=== PATIENT | male | born 1985 | race Caucasian/White ===

== ENCOUNTER 2016-11-27 10:50 | Emergency (ER) | payer SELFPAY ==
[~2016-11-27] VITALS: Ht 182.8 cm; Wt 102.1 kg
[~2016-11-27 10:50] MED LIST: CLARITIN10 MG PO; COZAAR100 MG PO; CYCLOBENZAPRINE5 M3 PO; FLEXERIL5 MG PO; GEMFIBROZIL600 MG PO; HYDROCODONE BIT1 T11 PO; KEFLEX500 M1 PO; LOSARTAN POTASS1 TA5 PO; MOTRIN800 MG PO; Motrin,Rufen800 MG PO; NKHM; NORCO 325 MG-101 TAB PO; OYSTER SHELL CA PO; PREDNISONE10 MG PO; PREDNISONE20 MG PO; PROAIR HFA0.09 MG/AC INH; Synthroid,Lev100 MCG PO; TRAMADOL HCL50 MG PO; VITAMIN D50000 IU PO
[2016-11-27] MEDS ORDERED: PREDNISONE10 MG PO (13:23)
[2016-11-27] MEDS ORDERED: CYCLOBENZAPRINE10 MG PO (13:23)
== END 2016-11-27 13:38 | disposition home or self-care (01) ==
LOC: ED 10:50
DX: S01.112A Laceration without foreign body of left eyelid and periocular area, initial encounter (principal); M54.5 Low back pain; R51 Headache; R42 Dizziness and giddiness; W10.9XXA Fall (on) (from) unspecified stairs and steps, initial encounter; Y93.9 Activity, unspecified; Y92.009 Unspecified place in unspecified non-institutional (private) residence as the place of occurrence of the external cause; Y99.9 Unspecified external cause status

== ENCOUNTER 2020-06-14 21:48 | Emergency (ER) | payer OTHER ==
[~2020-06-14] VITALS: Ht 182.8 cm; Wt 88.5 kg
[~2020-06-14 21:48] MED LIST changes: +CEFADROXIL500 M1 PO; +CYCLOBENZAPRINE10 MG PO; +SEPTDS PO
[2020-06-15] MEDS ORDERED: IBU800 MG PO (00:15)
[2020-06-15] MEDS ORDERED: CYCLOBENZAPRINE10 MG PO (00:15)
== END 2020-06-15 01:06 | disposition home or self-care (01) ==
LOC: ED 21:48
DX: S16.1XXA Strain of muscle, fascia and tendon at neck level, initial encounter (principal); V89.2XXA Person injured in unspecified motor-vehicle accident, traffic, initial encounter; Y93.89 Activity, other specified; Y92.89 Other specified places as the place of occurrence of the external cause; Y99.8 Other external cause status

== ENCOUNTER 2020-10-13 03:08 | Emergency (ER) | payer SELFPAY ==
[~2020-10-13] VITALS: Ht 182.8 cm; Wt 102.1 kg
[~2020-10-13 03:08] MED LIST changes: +IBU800 MG PO
[2020-10-13] MEDS ORDERED: AMOXICILLIN500 M2 PO ×2 (03:49)
== END 2020-10-13 04:20 | disposition home or self-care (01) ==
LOC: ED 03:08
DX: K04.7 Periapical abscess without sinus (principal); K08.89 Other specified disorders of teeth and supporting structures; Z79.899 Other long term (current) drug therapy

== ENCOUNTER 2020-10-23 13:35 | Inpatient (IN) | payer SELFPAY ==
[~2020-10-23] VITALS: Ht 180.3 cm; Wt 93.7 kg
[~2020-10-23 13:35] MED LIST changes: +AMOXICILLIN500 M2 PO
[2020-10-23 13:46] VITALS: BP 122/76
[2020-10-23 14:19] LABS: BASO # 0.1 10*3/uL (0.0-0.1); BASO % 0.4 % (0.0-1.0); EOS # 0.4 10*3/uL (0.0-0.4); EOS % 2.9 % (1.0-4.0); HEMATOCRIT 43.3 % (42.0-52.0); LYMPH # 1.8 10*3/uL (1.3-4.4); LYMPH % 15.1 % (27.0-41.0); MEAN CELL VOLUME 90.2 fl (80.0-94.0); MEAN CORPUSCULAR HGB 30.4 pg (27.0-31.0); MEAN CORPUSCULAR HGB CONC 33.7 g/dl (33.0-37.0); MEAN PLATELET VOLUME 10.1 fl (9.6-12.3); MONO # 0.9 10*3/uL (0.1-1.0); MONO % 7.5 % (3.0-9.0); NEUT # 8.9 10*3/uL (2.3-7.9); NEUT % 73.8 % (47.0-73.0); PLATELET COUNT AUTOMATED 272 10*3/uL (130-400); RED CELL DISTRI WIDTH 12.7 % (0-14.5); WHITE BLOOD COUNT 12.1 10*3/uL (4.8-10.8)
[2020-10-23 17:02] LABS: ALBUMIN 4.4 gm/dl (3.1-4.5); ALKALINE PHOSPHATASE 81 U/L (45-117); BUN 20 mg/dl (7-24); CHLORIDE 104 mmol/L (98-107); POTASSIUM 4.5 mmol/L (3.5-5.1); SGOT/AST 21 IU/L (3-35); SGPT/ALT 26 U/L (12-78); SODIUM 139 mmol/L (136-145); TOTAL PROTEIN 7.5 gm/dL (6.4-8.2)
--- NOTE | 2020-10-23 17:33 | NUR ---
[facility] 35, admitted to , under the services of NURIA Eli DO with a diagnosis of CELLULITIS. Chief complaint is PAIN. Patient arrived via bed from ER. Monitor applied. Initial assessment completed. Vital signs taken and recorded. NURIA ELI DO notified of admission to the unit. Orders received. See assessment for past medical history, medications and allergies. Patient and/or family oriented to unit. [facility] visitation policy reviewed. Clothing/patient valuable form completed. CONCHITA KANG
--- NOTE | 2020-10-23 18:00 | NUR ---
NOTIFIED DR. MORGAN THAT PT'S ARM ABOVE IV SITE WAS RED, ITCHING, AND DEVELOPING HIVES. WAS TOLD TO SLOW THE VANCOMYCIN DOWN, AND MEDS WILL BE GIVEN. WILL MONITOR.
[2020-10-23 20:00] VITALS: BP 129/64
--- NOTE | 2020-10-23 23:08 | NUR ---
24 HR chart check completed.
[2020-10-24] VITALS: BP 114/66
--- NOTE | 2020-10-24 01:43 | NUR ---
SO FAR SKIN CLEAR OF WELTS.VANCOMYCIN INFUSION AT LOW RATE PER ORDER.
[2020-10-24 06:34] LABS: BASO % 0.4 % (0.0-1.0); EOS # 0.4 10*3/uL (0.0-0.4); EOS % 5.1 % (1.0-4.0); HEMATOCRIT 40.8 % (42.0-52.0); LYMPH # 2.2 10*3/uL (1.3-4.4); LYMPH % 27.1 % (27.0-41.0); MEAN CELL VOLUME 91.1 fl (80.0-94.0); MEAN CORPUSCULAR HGB 30.4 pg (27.0-31.0); MEAN CORPUSCULAR HGB CONC 33.3 g/dl (33.0-37.0); MEAN PLATELET VOLUME 10.4 fl (9.6-12.3); MONO # 0.9 10*3/uL (0.1-1.0); MONO % 10.4 % (3.0-9.0); NEUT # 4.7 10*3/uL (2.3-7.9); NEUT % 56.8 % (47.0-73.0); PLATELET COUNT AUTOMATED 252 10*3/uL (130-400); RED BLOOD COUNT 4.48 10*6/uL (4.50-5.90); RED CELL DISTRI WIDTH 12.8 % (0-14.5); WHITE BLOOD COUNT 8.2 10*3/uL (4.8-10.8)
[2020-10-24 06:50] LABS: BUN 16 mg/dl (7-24); CHLORIDE 109 mmol/L (98-107); CHOLESTEROL 142 mg/dL (<200); CREATININE 1.27 mg/dL (0.70-1.30); POTASSIUM 4.3 mmol/L (3.5-5.1); SODIUM 140 mmol/L (136-145); TRIGLYCERIDES 104 mg/dl (<150); VLDL CHOLESTEROL 21 mg/dL (6-40)
[2020-10-24 06:51] LABS: HDL CHOLESTEROL 40 mg/dl (40-60); LDL CHOLESTEROL 81 mg/dL (9-159)
[2020-10-24 08:00] VITALS: BP 116/58
[2020-10-24 08:02] LABS: VITAMIN D, 25-HYDROXY 35.8 ng/mL (30-100)
--- NOTE | 2020-10-24 09:00 | NUR ---
Analyst Programmer in to talk to patient. Patient states lives at home with his girlfriend. There are 0 steps in the home. Physician: no family physician [facility]acy: [facility] Home health services: none Patient's level of ADLs: INDEPENDENT Patient has working utilities: yes DME: none Follow-up physician's appointment after d/c: will be made by the hospitalist nurse director upon discharge Does patient want to access PORTAL?: no Discharge plan discussed with patient. He lives at home with his girlfriend. He states he is independent in his ADLs and ambulation. Discussed home health care services and he declines. CM will continue to follow for any discharge planning needs. When medically stable he will be discharged to home. He states his girlfriend will provide transportation on discharge. DARRON HALL
[2020-10-24 12:00] VITALS: BP 117/65
[2020-10-24 16:00] VITALS: BP 127/57
--- NOTE | 2020-10-24 16:30 | NUR ---
NORCO GIVEN FOR C/O TOOTH PAIN. RATES 6/100 ON PAIN SCALE. WILL MONITOR.
--- NOTE | 2020-10-24 17:30 | NUR ---
NARA EFFECTIVE PER PT.
[2020-10-24 20:00] VITALS: BP 141/59
--- NOTE | 2020-10-24 22:00 | NUR ---
DRESSING CHANGED ON LEFT HAND PER ORDER.
[2020-10-25] VITALS: BP 116/67
--- NOTE | 2020-10-25 00:04 | NUR ---
NARA GIVEN FOR TOOTH PAIN RATED "6" SEE MAR.
--- NOTE | 2020-10-25 01:00 | NUR ---
PER PT. NARA EFFECTIVE FOR TOOTH PAIN.
--- NOTE | 2020-10-25 01:42 | NUR ---
24 HR chart check completed.
[2020-10-25 06:41] LABS: BASO % 0.4 % (0.0-1.0); EOS # 0.5 10*3/uL (0.0-0.4); HEMATOCRIT 40.3 % (42.0-52.0); LYMPH # 2.5 10*3/uL (1.3-4.4); LYMPH % 32.7 % (27.0-41.0); MEAN CELL VOLUME 90.8 fl (80.0-94.0); MEAN CORPUSCULAR HGB 30.2 pg (27.0-31.0); MEAN CORPUSCULAR HGB CONC 33.3 g/dl (33.0-37.0); MEAN PLATELET VOLUME 10.6 fl (9.6-12.3); MONO # 0.8 10*3/uL (0.1-1.0); MONO % 10.1 % (3.0-9.0); NEUT # 3.8 10*3/uL (2.3-7.9); NEUT % 49.5 % (47.0-73.0); PLATELET COUNT AUTOMATED 252 10*3/uL (130-400); RED BLOOD COUNT 4.44 10*6/uL (4.50-5.90); RED CELL DISTRI WIDTH 12.7 % (0-14.5); WHITE BLOOD COUNT 7.6 10*3/uL (4.8-10.8)
[2020-10-25 08:00] VITALS: BP 116/56
--- NOTE | 2020-10-25 08:00 | NUR ---
PATIENT AWAKE, ALERT AND ORIENTED. PT COMPLAINS OF TOOTH PAIN AT THIS TIME. NO OTHER STATED COMPLAINTS. RESPIRATIONS ARE EASY AND REGULAR, NO SOB NOTED AT REST ON ROOM AIR. PT ABLE TO REPOSITION SELF AND IS ENCOURAGED TO DO SO. BED IN LOWEST LOCKED POSITION AND CALL LIGHT WITHIN REACH. WILL CONTINUE TO MONITOR.
--- NOTE | 2020-10-25 09:36 | NUR ---
PRN NORCO ADMINISTERED AT THIS TIME FOR HEADACHE AND TOOTH PAIN RATED AT A 6. WILL MONITOR FOR EFFECTIVENESS.
--- NOTE | 2020-10-25 10:30 | NUR ---
PT STATES NORCO WAS EFFECTIVE
[2020-10-25] MEDS ORDERED: DOXYCYCLINE100 M3 PO (11:33)
[2020-10-25 12:00] VITALS: BP 113/58
--- NOTE | 2020-10-25 14:00 | NUR ---
PT DECLINED HAVING HIS BANDAGE REMOVED TO HAVE DISCHARGE WOUND PHOTOS TAKEN.
--- NOTE | 2020-10-25 14:02 | NUR ---
Discharge instructions reviewed with patient/family. Patient receptive and verbalizes understanding. Follow-up care arranged. Written instructions given to patient/family. TANVI RIZVI
== END 2020-10-25 14:02 | disposition home or self-care (01) | DRG 603 ==
LOC: ED 13:35 → EDHOLD 16:26 → 5E 16:26
PROVIDERS: Internal Medicine; Physician Assistant; ADMIT Internal Medicine; ATTEND Internal Medicine
DX: L03.114 Cellulitis of left upper limb (principal); K04.7 Periapical abscess without sinus; E66.3 Overweight; G89.29 Other chronic pain; M54.9 Dorsalgia, unspecified; M48.56XS Collapsed vertebra, not elsewhere classified, lumbar region, sequela of fracture; E83.41 Hypermagnesemia; D64.9 Anemia, unspecified; L27.1 Localized skin eruption due to drugs and medicaments taken internally; T36.8X5A Adverse effect of other systemic antibiotics, initial encounter; Y92.238 Other place in hospital as the place of occurrence of the external cause; T36.0X5A Adverse effect of penicillins, initial encounter; E87.8 Other disorders of electrolyte and fluid balance, not elsewhere classified; Z82.49 Family history of ischemic heart disease and other diseases of the circulatory system; Z87.891 Personal history of nicotine dependence; Z81.1 Family history of alcohol abuse and dependence; Z83.79 Family history of other diseases of the digestive system; Z68.28 Body mass index [BMI] 28.0-28.9, adult

== ENCOUNTER 2021-04-02 12:36 | Emergency (ER) | payer OTHER ==
[~2021-04-02] VITALS: Ht 182.8 cm; Wt 90.7 kg
[~2021-04-02 12:36] MED LIST changes: +DOXYCYCLINE100 M3 PO
[2021-04-02] MEDS ORDERED: AUGMENTIN 875875 MG PO (14:06)
[2021-04-02] MEDS ORDERED: IBUPROFEN600 MG PO (14:06)
== END 2021-04-02 14:44 | disposition home or self-care (01) ==
LOC: ED 12:36
DX: S81.852A Open bite, left lower leg, initial encounter (principal); Z79.899 Other long term (current) drug therapy; W54.0XXA Bitten by dog, initial encounter; Y93.89 Activity, other specified; Y92.89 Other specified places as the place of occurrence of the external cause; Y99.8 Other external cause status

== ENCOUNTER 2021-07-21 07:17 | Emergency (ER) | payer OTHER ==
[~2021-07-21] VITALS: Ht 182.8 cm; Wt 99.8 kg
[~2021-07-21 07:17] MED LIST changes: +AUGMENTIN 875875 MG PO; +IBUPROFEN600 MG PO
[2021-07-21] MEDS ORDERED: PREDNISONE50 MG PO ×2 (08:07→08:17)
[2021-07-21] MEDS ORDERED: PERCOCET 5-3251 EACH PO ×2 (08:07→08:17)
== END 2021-07-21 08:20 | disposition home or self-care (01) ==
LOC: ED 07:17
DX: M54.2 Cervicalgia (principal); M54.6 Pain in thoracic spine; Z87.891 Personal history of nicotine dependence

== ENCOUNTER → 2022-02-15 | Outpatient (CLI) | payer OTHER ==
[~2022-02-15] MED LIST changes: +PERCOCET 5-3251 EACH PO; +PREDNISONE10 M1 PO; +PREDNISONE50 MG PO
[2022-02-15 11:05] LABS: HEMATOCRIT 45.5 % (42.0-52.0); MEAN CELL VOLUME 89.7 fl (80.0-94.0); MEAN CORPUSCULAR HGB 30.8 pg (27.0-31.0); MEAN CORPUSCULAR HGB CONC 34.3 g/dl (33.0-37.0); MEAN PLATELET VOLUME 10.4 fl (9.6-12.3); RED BLOOD COUNT 5.07 10*6/uL (4.50-5.90); RED CELL DISTRI WIDTH 13.5 % (0-14.5); WHITE BLOOD COUNT 7.9 10*3/uL (4.8-10.8)
[2022-02-15 11:25] LABS: ALKALINE PHOSPHATASE 86 U/L (45-117); BUN 13 mg/dl (7-24); CHLORIDE 109 mmol/L (98-107); CHOLESTEROL 162 mg/dL (<200); CREATININE 1.25 mg/dL (0.70-1.30); LDL CHOLESTEROL 92 mg/dL (9-159); POTASSIUM 4.6 mmol/L (3.5-5.1); SGOT/AST 78 IU/L (3-35); SGPT/ALT 49 U/L (12-78); SODIUM 139 mmol/L (136-145); TOTAL PROTEIN 7.6 gm/dL (6.4-8.2); TRIGLYCERIDES 136 mg/dl (<150)
[2022-02-15 11:30] LABS: FREE T4 0.86 ng/dl (0.76-1.46)
[2022-02-15 11:57] LABS: VITAMIN D, 25-HYDROXY 27.7 ng/mL (30-100)
== END | disposition home or self-care (01) ==
LOC: LAB 10:43
PROVIDERS: ATTEND Family Medicine
DX: Z00.00 Encounter for general adult medical examination without abnormal findings (principal); R53.83 Other fatigue; E55.9 Vitamin D deficiency, unspecified; L50.9 Urticaria, unspecified

== ENCOUNTER 2022-02-16 01:31 | Emergency (ER) | payer OTHER ==
[~2022-02-16 01:31] MED LIST changes: -PREDNISONE10 M1 PO
[2022-02-16] MEDS ORDERED: PREDNISONE10 M1 PO (03:26)
== END 2022-02-16 03:39 | disposition home or self-care (01) ==
LOC: ED 01:31
DX: L50.9 Urticaria, unspecified (principal); Z87.891 Personal history of nicotine dependence

== ENCOUNTER 2023-04-26 22:09 | Emergency (ER) | payer OTHER ==
[~2023-04-26] VITALS: Ht 182.8 cm; Wt 97.5 kg
[~2023-04-26 22:09] MED LIST changes: +PREDNISONE10 M1 PO
[2023-04-26] MEDS ORDERED: MACROBID100 M1 PO (22:11)
== END 2023-04-27 01:51 | disposition home or self-care (01) ==
LOC: ED 22:09
DX: S16.1XXA Strain of muscle, fascia and tendon at neck level, initial encounter (principal); S29.011A Strain of muscle and tendon of front wall of thorax, initial encounter; S29.012A Strain of muscle and tendon of back wall of thorax, initial encounter; F12.10 Cannabis abuse, uncomplicated; Z87.891 Personal history of nicotine dependence; V43.52XA Car driver injured in collision with other type car in traffic accident, initial encounter; Y93.89 Activity, other specified; Y92.410 Unspecified street and highway as the place of occurrence of the external cause; Y99.8 Other external cause status

== ENCOUNTER 2023-09-07 23:28 | Emergency (ER) | payer OTHER ==
[~2023-09-07] VITALS: Ht 182.8 cm; Wt 106.6 kg
[~2023-09-07 23:28] MED LIST changes: +MACROBID100 M1 PO
[2023-09-08 00:34] LABS: BASO % 0.6 % (0.0-1.0); EOS # 0.5 10*3/uL (0.0-0.4); EOS % 7.6 % (1.0-4.0); HEMATOCRIT 37.7 % (42.0-52.0); LYMPH # 2.2 10*3/uL (1.3-4.4); LYMPH % 31.7 % (27.0-41.0); MEAN CELL VOLUME 88.9 fl (80.0-94.0); MEAN CORPUSCULAR HGB 30.9 pg (27.0-31.0); MEAN CORPUSCULAR HGB CONC 34.7 g/dl (33.0-37.0); MEAN PLATELET VOLUME 9.6 fl (9.6-12.3); MONO # 0.7 10*3/uL (0.1-1.0); MONO % 9.3 % (3.0-9.0); NEUT # 3.5 10*3/uL (2.3-7.9); NEUT % 50.4 % (47.0-73.0); PLATELET COUNT AUTOMATED 243 10*3/uL (130-400); RED BLOOD COUNT 4.24 10*6/uL (4.50-5.90); RED CELL DISTRI WIDTH 13.2 % (0-14.5); VENOUS PH 7.388 (7.37-7.45)
[2023-09-08 00:45] LABS: ACT PARTIAL THROMBO TIME 29.1 SECONDS (20.0-32.1)
[2023-09-08 00:58] LABS: ALKALINE PHOSPHATASE 85 U/L (46-116); BUN 19 mg/dl (9-23); CHLORIDE 102 mmol/L (98-107); POTASSIUM 4.1 mmol/L (3.4-5.1); SGPT/ALT 20 U/L (5-49); TOTAL PROTEIN 6.7 gm/dL (6.0-8.0)
[2023-09-08 01:13] LABS: CPK 395 U/L (34-171)
[2023-09-08 01:17] LABS: ETHYL ALCOHOL < 3.0 mg/dl (<3)
[2023-09-08 02:20] LABS: BILIRUBIN Negative (Negative); BLOOD Negative (Negative); CLARITY Clear (Clear); COLOR Yellow (Yellow); GLUCOSE Negative (Negative); KETONE Negative (Negative); LEUKO ESTERASE Negative (Negative); NITRITE Negative (Negative); UROBILINOGEN 0.2 E.U./dl (0.0-1.0)
[2023-09-08 02:27] LABS: URINE AMPHETAMINES Negative (1000ng/ml); URINE BARBITURATES Negative (200ng/ml); URINE BENZODIAZEPINES Negative (200ng/ml); URINE CANNABINOIDS (THC) Positive (50ng/ml); URINE COCAINE Negative (300ng/ml); URINE METHADONE Negative (300ng/ml); URINE OPIATES Negative (300ng/ml); URINE PHENCYCLIDINE Negative (25ng/ml)
[2023-09-08 02:31] LABS: RBC 0-2 rbc/hpf (0-2); WBC 0-2 wbc/hpf (0-5)
== END 2023-09-08 03:35 | disposition home or self-care (01) ==
LOC: ED 23:28
PROVIDERS: Internal Medicine
DX: T23.101A Burn of first degree of right hand, unspecified site, initial encounter (principal); T31.0 Burns involving less than 10% of body surface; Z87.891 Personal history of nicotine dependence; F12.10 Cannabis abuse, uncomplicated; Z79.899 Other long term (current) drug therapy; X08.8XXA Exposure to other specified smoke, fire and flames, initial encounter; Y93.89 Activity, other specified; Y92.89 Other specified places as the place of occurrence of the external cause; Y99.8 Other external cause status

== ENCOUNTER 2024-03-15 20:31 | Emergency (ER) | payer OTHER ==
[~2024-03-15] VITALS: Ht 182.8 cm; Wt 113.4 kg
[2024-03-15] MEDS ORDERED: Tetracaine Hydrochloride 0.5% 4 ML BOT OPH ONE (21:00)
[2024-03-15] MEDS ORDERED: FLUORESCEIN SODIUM 1 MG STRIP OPH ONE (21:00)
[2024-03-15] MEDS ORDERED: BALANCED SALT OPH ONE (21:25)
== END 2024-03-16 00:30 | disposition left against medical advice (07) ==
LOC: ED 20:31
DX: T26.42XA Burn of left eye and adnexa, part unspecified, initial encounter (principal); S05.02XA Injury of conjunctiva and corneal abrasion without foreign body, left eye, initial encounter; Z87.891 Personal history of nicotine dependence; Z79.2 Long term (current) use of antibiotics; Z79.899 Other long term (current) drug therapy; X08.8XXA Exposure to other specified smoke, fire and flames, initial encounter; Y93.89 Activity, other specified; Y92.89 Other specified places as the place of occurrence of the external cause; Y99.8 Other external cause status

== ENCOUNTER 2024-04-27 00:49 | Emergency (ER) | payer OTHER ==
[~2024-04-27] VITALS: Ht 182.8 cm; Wt 90.7 kg
[2024-04-27 01:39] LABS: BASO % 0.5 % (0.0-1.0); EOS # 0.1 10*3/uL (0.0-0.4); EOS % 1.5 % (1.0-4.0); HEMATOCRIT 40.2 % (42.0-52.0); LYMPH # 2.3 10*3/uL (1.3-4.4); LYMPH % 26.7 % (27.0-41.0); MEAN CELL VOLUME 90.3 fl (80.0-94.0); MEAN CORPUSCULAR HGB 29.9 pg (27.0-31.0); MEAN CORPUSCULAR HGB CONC 33.1 g/dl (33.0-37.0); MEAN PLATELET VOLUME 9.4 fl (9.6-12.3); MONO # 0.8 10*3/uL (0.1-1.0); MONO % 9.7 % (3.0-9.0); NEUT # 5.3 10*3/uL (2.3-7.9); NEUT % 61.5 % (47.0-73.0); PLATELET COUNT AUTOMATED 276 10*3/uL (130-400); RED BLOOD COUNT 4.45 10*6/uL (4.50-5.90); RED CELL DISTRI WIDTH 13.2 % (0-14.5); WHITE BLOOD COUNT 8.5 10*3/uL (4.8-10.8)
[2024-04-27 02:02] LABS: ALKALINE PHOSPHATASE 94 U/L (46-116); BUN 17 mg/dl (9-23); CHLORIDE 105 mmol/L (98-107); CPK 403 U/L (34-171); POTASSIUM 3.7 mmol/L (3.4-5.1); SGPT/ALT 18 U/L (5-49); TOTAL PROTEIN 7.2 gm/dL (6.0-8.0)
[2024-04-27 03:00] LABS: BILIRUBIN Negative (Negative); CLARITY Clear (Clear); COLOR Yellow (Yellow); GLUCOSE Negative (Negative)
[2024-04-27 03:01] LABS: BLOOD Negative (Negative); KETONE Trace (Negative); LEUKO ESTERASE Negative (Negative); NITRITE Negative (Negative); UROBILINOGEN 0.2 E.U./dl (0.0-1.0)
[2024-04-27 03:06] LABS: URINE AMPHETAMINES Positive (1000ng/ml); URINE BARBITURATES Negative (200ng/ml); URINE BENZODIAZEPINES Negative (200ng/ml); URINE CANNABINOIDS (THC) Positive (50ng/ml); URINE COCAINE Negative (300ng/ml); URINE METHADONE Negative (300ng/ml); URINE OPIATES Negative (300ng/ml); URINE PHENCYCLIDINE Negative (25ng/ml)
[2024-04-27] MEDS ORDERED: LORazepam 2 MG TAB PO ONE (03:10)
== END 2024-04-27 05:15 | disposition home or self-care (01) ==
LOC: ED 00:49
PROVIDERS: Internal Medicine
DX: F15.90 Other stimulant use, unspecified, uncomplicated (principal); F22 Delusional disorders; R74.8 Abnormal levels of other serum enzymes; Z79.2 Long term (current) use of antibiotics; Z79.899 Other long term (current) drug therapy; Z87.891 Personal history of nicotine dependence

== ENCOUNTER 2024-04-30 00:21 | Emergency (ER) | payer OTHER ==
[2024-04-30] MEDS ORDERED: LORazepam 1 MG TAB PO ONE (00:40)
== END 2024-04-30 00:47 | disposition left against medical advice (07) ==
LOC: ED 00:21
DX: B83.9 Helminthiasis, unspecified (principal); Z53.21 Procedure and treatment not carried out due to patient leaving prior to being seen by health care provider

== ENCOUNTER 2024-05-04 22:47 | Emergency (ER) | payer OTHER ==
[~2024-05-04] VITALS: Ht 182.8 cm; Wt 99.8 kg
[2024-05-04 23:52] LABS: BASO % 0.4 % (0.0-1.0); EOS # 0.2 10*3/uL (0.0-0.4); EOS % 2.6 % (1.0-4.0); HEMATOCRIT 37.5 % (42.0-52.0); LYMPH % 22.5 % (27.0-41.0); MEAN CELL VOLUME 90.4 fl (80.0-94.0); MEAN CORPUSCULAR HGB 30.1 pg (27.0-31.0); MEAN CORPUSCULAR HGB CONC 33.3 g/dl (33.0-37.0); MEAN PLATELET VOLUME 9.5 fl (9.6-12.3); MONO # 0.7 10*3/uL (0.1-1.0); MONO % 7.9 % (3.0-9.0); NEUT # 5.9 10*3/uL (2.3-7.9); NEUT % 66.3 % (47.0-73.0); PLATELET COUNT AUTOMATED 272 10*3/uL (130-400); RED BLOOD COUNT 4.15 10*6/uL (4.50-5.90); RED CELL DISTRI WIDTH 13.3 % (0-14.5); WHITE BLOOD COUNT 8.9 10*3/uL (4.8-10.8)
[2024-05-05 00:14] LABS: ALKALINE PHOSPHATASE 91 U/L (46-116); BUN 14 mg/dl (9-23); CHLORIDE 106 mmol/L (98-107); CPK 533 U/L (34-171); POTASSIUM 3.7 mmol/L (3.4-5.1); SGPT/ALT 27 U/L (5-49); TOTAL PROTEIN 6.9 gm/dL (6.0-8.0)
== END 2024-05-05 00:44 | disposition home or self-care (01) ==
LOC: ED 22:47
PROVIDERS: Internal Medicine
DX: D64.9 Anemia, unspecified (principal); R11.0 Nausea; R07.89 Other chest pain; M54.9 Dorsalgia, unspecified; F12.10 Cannabis abuse, uncomplicated; Z87.891 Personal history of nicotine dependence

== ENCOUNTER 2024-05-12 03:40 | Emergency (ER) | payer OTHER ==
[~2024-05-12] VITALS: Ht 182.8 cm; Wt 102.1 kg
[2024-05-12] MEDS ORDERED: methylPREDNISolone sod succ 125 MG VIAL IM ONE (04:30)
[2024-05-12] MEDS ORDERED: PREDNISONE20 M1 PO (05:03)
== END 2024-05-12 05:11 | disposition home or self-care (01) ==
LOC: ED 03:40
DX: L23.7 Allergic contact dermatitis due to plants, except food (principal); F12.10 Cannabis abuse, uncomplicated; Z87.891 Personal history of nicotine dependence

== ENCOUNTER 2024-05-17 03:40 | Emergency (ER) | payer OTHER ==
[~2024-05-17] VITALS: Ht 182.8 cm; Wt 111.1 kg
[~2024-05-17 03:40] MED LIST changes: +PREDNISONE20 M1 PO
== END 2024-05-17 05:32 | disposition home or self-care (01) ==
LOC: ED 03:40
DX: F42.4 Excoriation (skin-picking) disorder (principal); F12.10 Cannabis abuse, uncomplicated; Z87.891 Personal history of nicotine dependence

== ENCOUNTER → 2024-05-18 | Outpatient (CLI) | payer OTHER ==
[2024-05-18 18:14] LABS: HEMATOCRIT 38.8 % (42.0-52.0); MEAN CELL VOLUME 90.9 fl (80.0-94.0); MEAN CORPUSCULAR HGB 29.7 pg (27.0-31.0); MEAN CORPUSCULAR HGB CONC 32.7 g/dl (33.0-37.0); MEAN PLATELET VOLUME 9.3 fl (9.6-12.3); RED BLOOD COUNT 4.27 10*6/uL (4.50-5.90); RED CELL DISTRI WIDTH 13.2 % (0-14.5); WHITE BLOOD COUNT 9.2 10*3/uL (4.8-10.8)
[2024-05-18 18:30] LABS: ALKALINE PHOSPHATASE 99 U/L (46-116); BUN 19 mg/dl (9-23); CHLORIDE 101 mmol/L (98-107); CHOLESTEROL 145 mg/dL (<200); LDL CHOLESTEROL 85 mg/dL (9-159); POTASSIUM 4.3 mmol/L (3.4-5.1); SGPT/ALT 23 U/L (5-49); TOTAL PROTEIN 7.2 gm/dL (6.0-8.0); TRIGLYCERIDES 85 mg/dl (<150)
[2024-05-19 10:08] LABS: HBSAG Negative (Negative); HEP B CORE AB, IGM Negative (Negative); HEPATITIS C ANTIBODY Non Reactive (Non Reactive)
== END | disposition home or self-care (01) ==
LOC: LAB 17:51
PROVIDERS: ATTEND Family Medicine
DX: R53.83 Other fatigue (principal); R21 Rash and other nonspecific skin eruption; Z20.7 Contact with and (suspected) exposure to pediculosis, acariasis and other infestations

== ENCOUNTER → 2024-05-19 | Outpatient (CLI) | payer OTHER | END | disposition home or self-care (01) | LOC: LAB 15:30 | PROVIDERS: ATTEND Family Medicine | DX: Z13.220 Encounter for screening for lipoid disorders (principal); R53.83 Other fatigue; R21 Rash and other nonspecific skin eruption; Z20.828 Contact with and (suspected) exposure to other viral communicable diseases ==

== ENCOUNTER 2024-06-04 14:34 | Emergency (ER) | payer OTHER ==
[~2024-06-04] VITALS: Ht 182.8 cm; Wt 102.1 kg
[2024-06-04] MEDS ORDERED: NIX MC (15:15)
[2024-06-04] MEDS ORDERED: LOTRISONE 0.05%45 GM T (15:18)
[2024-06-04] MEDS ORDERED: CORTISPORIN SUS10 ML OT (15:18)
== END 2024-06-04 15:25 | disposition home or self-care (01) ==
LOC: ED 14:34
DX: F22 Delusional disorders (principal); H60.91 Unspecified otitis externa, right ear; Z87.891 Personal history of nicotine dependence

== ENCOUNTER 2024-07-04 06:47 | Emergency (ER) | payer OTHER ==
[~2024-07-04 06:47] MED LIST changes: +CORTISPORIN SUS10 ML OT; +LOTRISONE 0.05%45 GM T; +NIX MC
== END 2024-07-04 07:33 | disposition home or self-care (01) ==
LOC: ED 06:47
DX: T14.8XXA Other injury of unspecified body region, initial encounter (principal); F12.10 Cannabis abuse, uncomplicated; Z87.891 Personal history of nicotine dependence; X58.XXXA Exposure to other specified factors, initial encounter; Y93.89 Activity, other specified; Y92.009 Unspecified place in unspecified non-institutional (private) residence as the place of occurrence of the external cause; Y99.8 Other external cause status

== ENCOUNTER → 2024-07-06 | Outpatient (CLI) | payer OTHER ==
[2024-07-06 15:06] LABS: FREE T4 1.07 ng/dl (0.89-1.76)
[2024-07-07 09:13] LABS: HBSAG Negative (Negative); HEP B CORE AB, IGM Negative (Negative); HEPATITIS C ANTIBODY Non Reactive (Non Reactive)
[2024-07-07 17:07] LABS: ANTI-DSDNA ANTIBODIES <1 IU/mL (0-9)
== END | disposition home or self-care (01) ==
LOC: LAB 14:15
PROVIDERS: ATTEND Family Medicine
DX: M79.10 Myalgia, unspecified site (principal); M25.50 Pain in unspecified joint

== ENCOUNTER 2024-09-04 11:04 | Emergency (ER) | payer OTHER ==
[~2024-09-04] VITALS: Ht 185.4 cm; Wt 95.3 kg
[2024-09-04] MEDS ORDERED: SODIUM CHLORIDE 0.9% 1,000 ML IV ONE (11:35)
[2024-09-04] MEDS ORDERED: Albuterol Sulfate 2.5 MG/3 ML VIAL NEB ONE (11:35)
[2024-09-04 11:48] LABS: BASO % 0.6 % (0.0-1.0); EOS # 0.2 10*3/uL (0.0-0.4); EOS % 4.6 % (1.0-4.0); HEMATOCRIT 42.3 % (42.0-52.0); LYMPH # 1.6 10*3/uL (1.3-4.4); LYMPH % 31.5 % (27.0-41.0); MEAN CELL VOLUME 86.3 fl (80.0-94.0); MEAN CORPUSCULAR HGB 29.6 pg (27.0-31.0); MEAN CORPUSCULAR HGB CONC 34.3 g/dl (33.0-37.0); MEAN PLATELET VOLUME 9.6 fl (9.6-12.3); MONO # 0.4 10*3/uL (0.1-1.0); MONO % 7.9 % (3.0-9.0); NEUT # 2.9 10*3/uL (2.3-7.9); NEUT % 55.2 % (47.0-73.0); PLATELET COUNT AUTOMATED 261 10*3/uL (130-400); RED CELL DISTRI WIDTH 12.9 % (0-14.5); WHITE BLOOD COUNT 5.2 10*3/uL (4.8-10.8)
[2024-09-04 12:09] LABS: BUN 12 mg/dl (9-23); CHLORIDE 101 mmol/L (98-107); POTASSIUM 4.5 mmol/L (3.4-5.1)
[2024-09-04] MEDS ORDERED: VENT7GM INH (12:19)
[2024-09-04] MEDS ORDERED: AVPAK AZITHROM250 M1 PO (12:19)
== END 2024-09-04 12:55 | disposition home or self-care (01) ==
LOC: ED 11:04
PROVIDERS: Emergency Medicine
DX: J40 Bronchitis, not specified as acute or chronic (principal); R06.02 Shortness of breath; Z87.891 Personal history of nicotine dependence; F12.10 Cannabis abuse, uncomplicated

== ENCOUNTER 2024-09-19 23:47 | Emergency (ER) | payer OTHER ==
[~2024-09-19] VITALS: Ht 182.8 cm; Wt 99.3 kg
[~2024-09-19 23:47] MED LIST changes: +AVPAK AZITHROM250 M1 PO; +VENT7GM INH
[2024-09-20] MEDS ORDERED: Naloxone Hydrochloride 2 MG/2 ML SYR ONE (00:13)
== END 2024-09-20 00:15 | disposition left against medical advice (07) ==
LOC: ED 23:47
DX: T50.991A Poisoning by other drugs, medicaments and biological substances, accidental (unintentional), initial encounter (principal); Z53.29 Procedure and treatment not carried out because of patient's decision for other reasons; F12.10 Cannabis abuse, uncomplicated; F19.10 Other psychoactive substance abuse, uncomplicated; Z87.891 Personal history of nicotine dependence; Y92.009 Unspecified place in unspecified non-institutional (private) residence as the place of occurrence of the external cause

== ENCOUNTER 2025-02-22 12:28 | Inpatient (IN) | payer OTHER ==
[~2025-02-22] VITALS: Ht 182.9 cm; Wt 98.1 kg
[2025-02-22 12:40] VITALS: BP 123/69
[2025-02-22] MEDS ORDERED: Doxycycline Hyclate 100 MG CAPSULE PO ONE (13:05)
[2025-02-22] MEDS ORDERED: Piperacillin Sodium/Tazobact 100 ML IV ONE (13:05)
[2025-02-22 13:24] LABS: BASO % 0.2 % (0.0-1.0); EOS # 0.1 10*3/uL (0.0-0.4); EOS % 0.8 % (1.0-4.0); HEMATOCRIT 41.5 % (42.0-52.0); MEAN CELL VOLUME 93.9 fl (80.0-94.0); MEAN CORPUSCULAR HGB 29.4 pg (27.0-31.0); MEAN CORPUSCULAR HGB CONC 31.3 g/dl (33.0-37.0); MEAN PLATELET VOLUME 10.1 fl (9.6-12.3); MONO # 0.4 10*3/uL (0.1-1.0); MONO % 3.4 % (3.0-9.0); NEUT # 8.7 10*3/uL (2.3-7.9); NEUT % 83.1 % (47.0-73.0); PLATELET COUNT AUTOMATED 286 10*3/uL (130-400); RED BLOOD COUNT 4.42 10*6/uL (4.50-5.90); RED CELL DISTRI WIDTH 13.9 % (0-14.5); WHITE BLOOD COUNT 10.5 10*3/uL (4.8-10.8)
[2025-02-22 13:35] LABS: ACT PARTIAL THROMBO TIME 24.8 SECONDS (20.0-32.1)
[2025-02-22 13:46] LABS: ALKALINE PHOSPHATASE 100 U/L (46-116); BUN 17 mg/dl (9-23); CHLORIDE 102 mmol/L (98-107); CPK 397 U/L (34-171); LIPASE 32 U/L (12-53); SGPT/ALT 78 U/L (5-49); TOTAL PROTEIN 6.8 gm/dL (6.0-8.0)
[2025-02-22] MEDS ORDERED: SODIUM CHLORIDE 0.9% 1,000 ML IV ONE ×2 (15:05→18:15)
[2025-02-22] MEDS ORDERED: AMOX-CLAV 875-1 EACH PO (16:06)
[2025-02-22] MEDS ORDERED: VIBRAMYCIN100 MG PO (16:06)
[2025-02-22 16:43] VITALS: BP 121/61
[2025-02-22] MEDS ORDERED: ASPIRIN, CHEWABLE 81 MG TAB PO ONE (17:30)
[2025-02-22 17:40] LABS: URINE AMPHETAMINES Positive (1000ng/ml); URINE BARBITURATES Negative (200ng/ml); URINE BENZODIAZEPINES Negative (200ng/ml); URINE CANNABINOIDS (THC) Negative (50ng/ml); URINE COCAINE Negative (300ng/ml); URINE METHADONE Negative (300ng/ml); URINE OPIATES Negative (300ng/ml); URINE PHENCYCLIDINE Negative (25ng/ml)
[2025-02-22] MEDS ORDERED: ACETAMINOPHEN 325 MG TAB PO PRN (18:10)
[2025-02-22] MEDS ORDERED: Ondansetron Hydrochloride 4 MG/2 ML VIAL IV PRN (18:10)
[2025-02-22] MEDS ORDERED: hydrOXYzine 50 MG CAP PO PRN (18:35)
[2025-02-22] MEDS ORDERED: Dicyclomine Hydrochloride 20 MG TAB PO PRN (18:35)
[2025-02-22] MEDS ORDERED: METHOCARBAMOL 750 MG TAB PO PRN (18:35)
[2025-02-22] MEDS ORDERED: Water, Sterile 10 ML VIAL IV PRN (18:35)
[2025-02-22] MEDS ORDERED: Albuterol Sulf/Ipratropium 3 ML VIAL NEB SCH (18:45)
[2025-02-22] MEDS ORDERED: ALBUTEROL SULF HFA 1 INH (19:27)
[2025-02-22] MEDS ORDERED: LORazepam 1 MG TAB PO SCH (20:00)
[2025-02-22] MEDS ORDERED: Piperacillin Sodium/Tazobact 50 ML IV SCH (20:00)
[2025-02-22 20:06] VITALS: BP 123/59
[2025-02-22 21:50] VITALS: BP 106/73
[2025-02-22] MEDS ORDERED: HEPARIN SODIUM 5,000 UNIT/ML VIAL SC SCH (22:00)
[2025-02-22] MEDS ORDERED: ATORVASTATIN CALCIUM 40 MG TABLET PO SCH (22:00)
[2025-02-22] MEDS ORDERED: VANCOMYCIN/WATER FOR INJ (PEG) 350 ML IV SCH (22:00)
[2025-02-23] VITALS: BP 127/69
[2025-02-23 06:12] LABS: ALKALINE PHOSPHATASE 75 U/L (46-116); BUN 12 mg/dl (9-23); CHLORIDE 103 mmol/L (98-107); SGPT/ALT 79 U/L (5-49); TOTAL PROTEIN 5.8 gm/dL (6.0-8.0)
[2025-02-23 06:18] LABS: POTASSIUM 3.9 mmol/L (3.4-5.1)
[2025-02-23 06:31] LABS: BASO % 0.1 % (0.0-1.0); EOS # 0.3 10*3/uL (0.0-0.4); EOS % 3.3 % (1.0-4.0); HEMATOCRIT 36.3 % (42.0-52.0); MEAN CELL VOLUME 91.7 fl (80.0-94.0); MEAN CORPUSCULAR HGB 29.8 pg (27.0-31.0); MEAN CORPUSCULAR HGB CONC 32.5 g/dl (33.0-37.0); MEAN PLATELET VOLUME 10.9 fl (9.6-12.3); MONO # 0.8 10*3/uL (0.1-1.0); MONO % 9.8 % (3.0-9.0); NEUT # 4.3 10*3/uL (2.3-7.9); NEUT % 54.6 % (47.0-73.0); PLATELET COUNT AUTOMATED 237 10*3/uL (130-400); RED BLOOD COUNT 3.96 10*6/uL (4.50-5.90); RED CELL DISTRI WIDTH 14.2 % (0-14.5); WHITE BLOOD COUNT 7.9 10*3/uL (4.8-10.8)
[2025-02-23 08:00] VITALS: BP 132/76
[2025-02-23 12:00] VITALS: BP 130/69
[2025-02-23] MEDS ORDERED: cefTRIAXone Sodium 1 GM in SYRINGE INFUSION 10 ML IV SCH (14:00)
[2025-02-23] MEDS ORDERED: Doxycycline Hyclate 100 MG CAPSULE PO SCH (22:00)
[2025-02-23] MEDS ORDERED: LORazepam 1 MG TAB PO SCH (22:00)
[2025-02-24] MEDS ORDERED: LORazepam 1 MG TAB PO PRN
== END 2025-02-23 15:39 | disposition left against medical advice (07) | DRG 917 ==
LOC: ED 12:28 → EDHOLD 17:47 → 5E 17:47
PROVIDERS: Emergency Medicine; Student in an Organized Health Care Education/Training Program; ADMIT Family Medicine; ATTEND Family Medicine
DX: T50.991A Poisoning by other drugs, medicaments and biological substances, accidental (unintentional), initial encounter (principal); I21.A1 Myocardial infarction type 2; J69.0 Pneumonitis due to inhalation of food and vomit; N17.0 Acute kidney failure with tubular necrosis; L03.211 Cellulitis of face; E87.20 Acidosis, unspecified; B17.0 Acute delta-(super) infection of hepatitis B carrier; E44.0 Moderate protein-calorie malnutrition; R55 Syncope and collapse; G89.29 Other chronic pain; M54.9 Dorsalgia, unspecified; D64.9 Anemia, unspecified; R73.9 Hyperglycemia, unspecified; R74.01 Elevation of levels of liver transaminase levels; F15.10 Other stimulant abuse, uncomplicated; Z53.29 Procedure and treatment not carried out because of patient's decision for other reasons; Z79.899 Other long term (current) drug therapy; Z79.01 Long term (current) use of anticoagulants; Z79.2 Long term (current) use of antibiotics; Z87.891 Personal history of nicotine dependence; Z68.29 Body mass index [BMI] 29.0-29.9, adult; Z81.1 Family history of alcohol abuse and dependence; Z82.49 Family history of ischemic heart disease and other diseases of the circulatory system; Y92.89 Other specified places as the place of occurrence of the external cause

== ENCOUNTER 2025-03-29 11:53 | Emergency (ER) | payer OTHER ==
[~2025-03-29] VITALS: Ht 182.8 cm; Wt 79.4 kg
[~2025-03-29 11:53] MED LIST changes: +ALBUTEROL SULF HFA 1 INH; +AMOX-CLAV 875-1 EACH PO; +VIBRAMYCIN100 MG PO
[2025-03-29] MEDS ORDERED: CEPHALEXIN500 M1 PO (13:02)
[2025-03-29] MEDS ORDERED: ELIMITE 5%60 GM T (13:02)
[2025-03-29] MEDS ORDERED: CEPHALEXIN 500 MG CAP PO ONE (13:05)
== END 2025-03-29 13:02 | disposition home or self-care (01) ==
LOC: ED 11:53
DX: S01.112A Laceration without foreign body of left eyelid and periocular area, initial encounter (principal); Z79.899 Other long term (current) drug therapy; Z88.8 Allergy status to other drugs, medicaments and biological substances; J45.909 Unspecified asthma, uncomplicated; W20.8XXA Other cause of strike by thrown, projected or falling object, initial encounter; Y93.89 Activity, other specified; Y92.89 Other specified places as the place of occurrence of the external cause; Y99.8 Other external cause status

== ENCOUNTER → 2025-03-31 | Outpatient (CLI) | payer OTHER ==
[~2025-03-31] MED LIST changes: +CEPHALEXIN500 M1 PO; +ELIMITE 5%60 GM T
== END ==
LOC: WOUNDCARE 12:31
PROVIDERS: ATTEND Nurse Practitioner Family
DX: S01.112A Laceration without foreign body of left eyelid and periocular area, initial encounter (principal); S40.811A Abrasion of right upper arm, initial encounter; S40.812A Abrasion of left upper arm, initial encounter; L02.01 Cutaneous abscess of face; L02.414 Cutaneous abscess of left upper limb; L02.413 Cutaneous abscess of right upper limb; L02.512 Cutaneous abscess of left hand; R60.9 Edema, unspecified; I25.2 Old myocardial infarction; L53.9 Erythematous condition, unspecified; F22 Delusional disorders; F19.10 Other psychoactive substance abuse, uncomplicated; Z87.891 Personal history of nicotine dependence; Z79.899 Other long term (current) drug therapy; X58.XXXA Exposure to other specified factors, initial encounter; Y93.89 Activity, other specified; Y92.89 Other specified places as the place of occurrence of the external cause; Y99.8 Other external cause status

== ENCOUNTER → 2025-04-07 | Outpatient (CLI) | payer OTHER ==
[2025-04-07 17:27] LABS: BASO % 0.4 % (0.0-1.0); EOS # 0.6 10*3/uL (0.0-0.4); EOS % 6.1 % (1.0-4.0); HEMATOCRIT 39.7 % (42.0-52.0); MEAN CELL VOLUME 92.3 fl (80.0-94.0); MEAN CORPUSCULAR HGB CONC 32.5 g/dl (33.0-37.0); MEAN PLATELET VOLUME 10.4 fl (9.6-12.3); MONO # 0.8 10*3/uL (0.1-1.0); MONO % 8.1 % (3.0-9.0); NEUT # 5.1 10*3/uL (2.3-7.9); PLATELET COUNT AUTOMATED 284 10*3/uL (130-400); RED CELL DISTRI WIDTH 13.7 % (0-14.5); WHITE BLOOD COUNT 9.2 10*3/uL (4.8-10.8)
[2025-04-07 17:29] LABS: BILIRUBIN Negative (Negative); BLOOD Negative (Negative); CLARITY Clear (Clear); COLOR Yellow (Yellow); GLUCOSE Negative (Negative); KETONE Trace (Negative); LEUKO ESTERASE Trace (Negative); NITRITE Negative (Negative); PH 5.5 (4.5-8.0); SPECIFIC GRAVITY 1.025 (1.001-1.030); UROBILINOGEN 0.2 E.U./dl (0.0-1.0)
[2025-04-07 17:45] LABS: BACTERIA 1+; MUCOUS 1+
[2025-04-07 17:51] LABS: ALKALINE PHOSPHATASE 92 U/L (46-116); BUN 25 mg/dl (9-23); CHLORIDE 101 mmol/L (98-107); SGPT/ALT 14 U/L (5-49); TOTAL PROTEIN 6.7 gm/dL (6.0-8.0)
== END ==
LOC: WOUNDCARE 00:54
PROVIDERS: ATTEND Nurse Practitioner Family
DX: S01.112D Laceration without foreign body of left eyelid and periocular area, subsequent encounter (principal); S40.811D Abrasion of right upper arm, subsequent encounter; S40.812D Abrasion of left upper arm, subsequent encounter; L02.01 Cutaneous abscess of face; L02.414 Cutaneous abscess of left upper limb; L02.413 Cutaneous abscess of right upper limb; L02.512 Cutaneous abscess of left hand; I25.2 Old myocardial infarction; R60.9 Edema, unspecified; L53.9 Erythematous condition, unspecified; F22 Delusional disorders; F19.20 Other psychoactive substance dependence, uncomplicated; Z87.891 Personal history of nicotine dependence; Z79.899 Other long term (current) drug therapy; X58.XXXD Exposure to other specified factors, subsequent encounter

== ENCOUNTER 2025-04-14 10:48 | Emergency (ER) | payer OTHER ==
[~2025-04-14] VITALS: Ht 182.8 cm; Wt 90.7 kg
[~2025-04-14 10:48] MED LIST changes: -VENTOLIN 02.5 MG/3 M INH; -ZITHROMAX250 MG PO
[2025-04-14] MEDS ORDERED: Albuterol Sulf/Ipratropium 3 ML VIAL NEB ONE (11:15)
[2025-04-14] MEDS ORDERED: methylPREDNISolone sod succ 125 MG VIAL IM ONE (11:15)
[2025-04-14 11:28] LABS: BASO # 0.1 10*3/uL (0.0-0.1); BASO % 0.5 % (0.0-1.0); EOS # 0.7 10*3/uL (0.0-0.4); EOS % 6.4 % (1.0-4.0); HEMATOCRIT 43.3 % (42.0-52.0); MEAN CELL VOLUME 91.4 fl (80.0-94.0); MEAN CORPUSCULAR HGB CONC 32.8 g/dl (33.0-37.0); MONO % 8.9 % (3.0-9.0); NEUT # 6.7 10*3/uL (2.3-7.9); NEUT % 63.2 % (47.0-73.0); PLATELET COUNT AUTOMATED 289 10*3/uL (130-400); RED BLOOD COUNT 4.74 10*6/uL (4.50-5.90); RED CELL DISTRI WIDTH 13.7 % (0-14.5); WHITE BLOOD COUNT 10.7 10*3/uL (4.8-10.8)
[2025-04-14 11:47] LABS: BUN 22 mg/dl (9-23); CHLORIDE 104 mmol/L (98-107); POTASSIUM 4.6 mmol/L (3.4-5.1)
[2025-04-14] MEDS ORDERED: VENTOLIN 02.5 MG/3 M INH (12:05)
[2025-04-14] MEDS ORDERED: ZITHROMAX250 MG PO (12:36)
[2025-04-14] MEDS ORDERED: ALBUTEROL 8 GM INHALER INH ONE (12:40)
[2025-04-14] MEDS ORDERED: AZITHROMYCIN 250 MG TAB PO ONE (12:40)
[2025-04-14] MEDS ORDERED: PREDNISONE20 M1 PO (12:41)
[2025-04-14] MEDS ORDERED: predniSONE 20 MG TAB PO ONE (12:45)
== END 2025-04-14 12:49 | disposition home or self-care (01) ==
LOC: ED 10:48
PROVIDERS: Nurse Practitioner Family
DX: J45.909 Unspecified asthma, uncomplicated (principal); J98.4 Other disorders of lung; Z87.891 Personal history of nicotine dependence

== ENCOUNTER → 2025-04-14 | Outpatient (CLI) | payer OTHER ==
[~2025-04-14] MED LIST changes: +VENTOLIN 02.5 MG/3 M INH; +ZITHROMAX250 MG PO
== END ==
LOC: WOUNDCARE 00:18
PROVIDERS: ATTEND Nurse Practitioner Family
DX: S01.112D Laceration without foreign body of left eyelid and periocular area, subsequent encounter (principal); L02.01 Cutaneous abscess of face; L02.414 Cutaneous abscess of left upper limb; L02.413 Cutaneous abscess of right upper limb; L02.512 Cutaneous abscess of left hand; S40.811D Abrasion of right upper arm, subsequent encounter; S40.812D Abrasion of left upper arm, subsequent encounter; R60.9 Edema, unspecified; L53.9 Erythematous condition, unspecified; F22 Delusional disorders; Z98.890 Other specified postprocedural states; Z87.891 Personal history of nicotine dependence; Z79.899 Other long term (current) drug therapy; X58.XXXD Exposure to other specified factors, subsequent encounter

== ENCOUNTER → 2025-04-18 | Outpatient (CLI) | payer OTHER ==
[~2025-04-18] MED LIST changes: +VENTOLIN 02.5 MG/3 M INH; +ZITHROMAX250 MG PO
== END | disposition home or self-care (01) ==
LOC: WOUNDCARE 06:19
PROVIDERS: ATTEND Nurse Practitioner Family
DX: S00.81XD Abrasion of other part of head, subsequent encounter (principal); S40.811D Abrasion of right upper arm, subsequent encounter; S40.812D Abrasion of left upper arm, subsequent encounter; R60.9 Edema, unspecified; L53.9 Erythematous condition, unspecified; F22 Delusional disorders; Z79.899 Other long term (current) drug therapy; X58.XXXD Exposure to other specified factors, subsequent encounter

== ENCOUNTER 2025-05-20 03:17 | Emergency (ER) | payer OTHER ==
[~2025-05-20] VITALS: Ht 182.8 cm; Wt 95.3 kg
[2025-05-20 04:16] LABS: BASO # 0.0 10*3/uL (0.0-0.1); BASO % 0.3 % (0.0-1.0); EOS # 0.5 10*3/uL (0.0-0.4); EOS % 5.7 % (1.0-4.0); MEAN CELL VOLUME 91.3 fl (80.0-94.0); MEAN CORPUSCULAR HGB 29.6 pg (27.0-31.0); MEAN PLATELET VOLUME 9.7 fl (9.6-12.3); MONO # 0.8 10*3/uL (0.1-1.0); MONO % 8.8 % (3.0-9.0); NEUT # 6.1 10*3/uL (2.3-7.9); NEUT % 64.0 % (47.0-73.0); NUCLEATED RED BLOOD CELL 0.0 % (0.0-0.0); NUCLEATED RED BLOOD CELL 0.0 10*3/uL (0.0-0.0); PLATELET COUNT AUTOMATED 254 10*3/uL (130-400); RED CELL DISTRI WIDTH 13.0 % (0-14.5)
[2025-05-20 04:35] LABS: BUN 21 mg/dl (9-23); SGPT/ALT 26 U/L (5-49)
[2025-05-20] MEDS ORDERED: VIBRAMYCIN100 MG PO (04:45)
[2025-05-20] MEDS ORDERED: FUROSEMIDE 40 MG TAB PO ONE (04:45)
[2025-05-20] MEDS ORDERED: LASIX20 MG PO (04:45)
== END 2025-05-20 04:47 | disposition home or self-care (01) ==
LOC: ED 03:17
PROVIDERS: Emergency Medicine
DX: L03.116 Cellulitis of left lower limb (principal); L03.115 Cellulitis of right lower limb; J18.1 Lobar pneumonia, unspecified organism; R60.0 Localized edema; R05.9 Cough, unspecified; Z87.891 Personal history of nicotine dependence

== ENCOUNTER 2025-06-08 00:05 | Inpatient (IN) | payer OTHER ==
[~2025-06-08] VITALS: Ht 182.9 cm; Wt 99.5 kg
[2025-06-08] VITALS (8 sets, daily range): BP systolic 118–143; BP diastolic 66–77
[~2025-06-08 00:05] MED LIST changes: +LASIX20 MG PO
[2025-06-08 00:35] LABS: BASO # 0.0 10*3/uL (0.0-0.1); BASO % 0.4 % (0.0-1.0); EOS # 0.6 10*3/uL (0.0-0.4); EOS % 6.0 % (1.0-4.0); MEAN CELL VOLUME 90.5 fl (80.0-94.0); MEAN CORPUSCULAR HGB 30.1 pg (27.0-31.0); MEAN PLATELET VOLUME 10.0 fl (9.6-12.3); MONO # 0.8 10*3/uL (0.1-1.0); MONO % 7.6 % (3.0-9.0); NEUT # 6.1 10*3/uL (2.3-7.9); NEUT % 60.0 % (47.0-73.0); NUCLEATED RED BLOOD CELL 0.0 % (0.0-0.0); NUCLEATED RED BLOOD CELL 0.0 10*3/uL (0.0-0.0); PLATELET COUNT AUTOMATED 275 10*3/uL (130-400); RED CELL DISTRI WIDTH 13.3 % (0-14.5)
[2025-06-08] MEDS ORDERED: Albuterol Sulf/Ipratropium 3 ML VIAL NEB ONE (00:40)
[2025-06-08 00:46] LABS: ACT PARTIAL THROMBO TIME 27.0 SECONDS (20.0-32.1)
[2025-06-08 00:59] LABS: BUN 19 mg/dl (9-23); SGPT/ALT 19 U/L (5-49)
[2025-06-08] MEDS ORDERED: SODIUM CHLORIDE 0.9% 500 ML IV ONE (01:05)
[2025-06-08] MEDS ORDERED: BISACODYL 5 MG TAB PO PRN (02:20)
[2025-06-08] MEDS ORDERED: BISACODYL 10 MG SUPP R PRN (02:20)
[2025-06-08] MEDS ORDERED: Ondansetron Hydrochloride 4 MG/2 ML VIAL IV PRN (02:20)
[2025-06-08] MEDS ORDERED: ACETAMINOPHEN 325 MG TAB PO PRN (02:20)
[2025-06-08] MEDS ORDERED: ACETAMINOPHEN 650 MG SUPP R PRN (02:20)
[2025-06-08] MEDS ORDERED: BUPRENORPHINE-1 EAC1 SL (02:28)
[2025-06-08] MEDS ORDERED: Albuterol Sulf/Ipratropium 3 ML VIAL NEB SCH (02:30)
[2025-06-08] MEDS ORDERED: MAGNESIUM SULFATE 50 ML IV ONE (02:30)
[2025-06-08 06:35] LABS: MEAN CELL VOLUME 90.6 fl (80.0-94.0); MEAN CORPUSCULAR HGB 29.8 pg (27.0-31.0); MEAN PLATELET VOLUME 9.8 fl (9.6-12.3); NUCLEATED RED BLOOD CELL 0.0 % (0.0-0.0); NUCLEATED RED BLOOD CELL 0.0 10*3/uL (0.0-0.0); PLATELET COUNT AUTOMATED 266 10*3/uL (130-400); RED CELL DISTRI WIDTH 13.4 % (0-14.5)
[2025-06-08 06:39] LABS: MANUAL DIFF REFLEX YES
[2025-06-08 07:22] LABS: PLATELET SUFFICIENCY NORMAL (NORMAL)
[2025-06-08 08:09] LABS: BUN 17 mg/dl (9-23); FREE T4 1.12 ng/dl (0.89-1.76); LDL CHOLESTEROL 79 mg/dL (9-159); SGPT/ALT 21 U/L (5-49)
[2025-06-08 08:12] LABS: VITAMIN D, 25-HYDROXY 41.9 ng/mL (30-100)
[2025-06-08] MEDS ORDERED: BUPRENORPHINE HCL/NALOXONE 8 MG-2 MG SL TABLET SL SCH (10:00)
[2025-06-08] MEDS ORDERED: GUAIFENESIN 600 MG TAB ER PO SCH (10:00)
[2025-06-08] MEDS ORDERED: VITAMIN A AND D 2 OZ TUBE T PRN (10:35)
[2025-06-08] MEDS ORDERED: MUPIROCIN 15 GM TUBE T SCH (10:59)
[2025-06-08 11:50] LABS: BILIRUBIN Negative (Negative); BLOOD Negative (Negative); CLARITY Clear (Clear); COLOR Yellow (Yellow); KETONE Trace (Negative); LEUKO ESTERASE Negative (Negative); NITRITE Negative (Negative); PH 7.5 (4.5-8.0); SPECIFIC GRAVITY 1.020 (1.001-1.030); UROBILINOGEN 0.2 E.U./dl (0.0-1.0)
[2025-06-08 12:11] LABS: RBC 0-2 rbc/hpf (0-2); WBC 0-2 wbc/hpf (0-5)
[2025-06-08 12:15] LABS: URINE AMPHETAMINES Negative (1000ng/ml); URINE BARBITURATES Negative (200ng/ml); URINE BENZODIAZEPINES Negative (200ng/ml); URINE CANNABINOIDS (THC) Negative (50ng/ml); URINE COCAINE Negative (300ng/ml); URINE METHADONE Negative (300ng/ml); URINE OPIATES Negative (300ng/ml); URINE PHENCYCLIDINE Negative (25ng/ml)
[2025-06-08] MEDS ORDERED: Fluticasone Propionate/Salmeterol 250/50 diskus INH SCH (13:10)
[2025-06-08] MEDS ORDERED: BUDESONIDE 0.5 MG AMP NEB SCH (13:15)
[2025-06-08] MEDS ORDERED: 'CLONIDINE0.1 MG PO (13:50)
[2025-06-08] MEDS ORDERED: CYCLOBENZAPRINE5 M3 PO (13:51)
[2025-06-08] MEDS ORDERED: ALBUTEROL SULFATE HF (13:51)
[2025-06-08] MEDS ORDERED: VENTOLIN 02.5 MG/3 M INH (13:52)
[2025-06-08] MEDS ORDERED: ONDANSETRON HYDR4 MG PO (13:52)
[2025-06-08] MEDS ORDERED: Cyclobenzaprine Hydrochlorid 10 MG TAB PO PRN (14:40)
[2025-06-09] VITALS: BP 140/69
[2025-06-09 06:53] LABS: BASO # 0.0 10*3/uL (0.0-0.1); BASO % 0.1 % (0.0-1.0); EOS # 0.0 10*3/uL (0.0-0.4); EOS % 0.1 % (1.0-4.0); MEAN CELL VOLUME 90.6 fl (80.0-94.0); MEAN CORPUSCULAR HGB 29.8 pg (27.0-31.0); MEAN PLATELET VOLUME 10.6 fl (9.6-12.3); MONO # 1.4 10*3/uL (0.1-1.0); MONO % 6.3 % (3.0-9.0); NEUT # 18.5 10*3/uL (2.3-7.9); NEUT % 87.2 % (47.0-73.0); NUCLEATED RED BLOOD CELL 0.0 % (0.0-0.0); NUCLEATED RED BLOOD CELL 0.0 10*3/uL (0.0-0.0); PLATELET COUNT AUTOMATED 312 10*3/uL (130-400); RED CELL DISTRI WIDTH 14.1 % (0-14.5)
[2025-06-09 07:22] LABS: BUN 23 mg/dl (9-23)
[2025-06-09 08:00] VITALS: BP 125/61
[2025-06-09 12:00] VITALS: BP 133/66
[2025-06-09 16:00] VITALS: BP 123/67
[2025-06-09 20:00] VITALS: BP 133/69
[2025-06-10] VITALS: BP 138/79
[2025-06-10 08:00] VITALS: BP 127/71
[2025-06-10] MEDS ORDERED: DOXYCYCLINE HY100 M3 PO (11:24)
[2025-06-10] MEDS ORDERED: PREDNISONE10 MG PO (11:24)
[2025-06-10] MEDS ORDERED: VENTOLIN 02.5 MG/3 M INH (11:29)
== END 2025-06-10 12:52 | disposition home or self-care (01) | DRG 202 ==
LOC: ED 00:05 → EDHOLD 01:34 → 5E 01:34
PROVIDERS: Emergency Medicine; ADMIT Internal Medicine; ATTEND Internal Medicine
DX: J45.21 Mild intermittent asthma with (acute) exacerbation (principal); N17.0 Acute kidney failure with tubular necrosis; D64.9 Anemia, unspecified; G89.29 Other chronic pain; M54.9 Dorsalgia, unspecified; F15.11 Other stimulant abuse, in remission; J98.4 Other disorders of lung; R73.9 Hyperglycemia, unspecified; Z79.899 Other long term (current) drug therapy; Z79.01 Long term (current) use of anticoagulants; Z87.891 Personal history of nicotine dependence; Z81.1 Family history of alcohol abuse and dependence; Z82.49 Family history of ischemic heart disease and other diseases of the circulatory system; Z86.14 Personal history of Methicillin resistant Staphylococcus aureus infection

== ENCOUNTER → 2025-06-19 | Outpatient (CLI) | payer OTHER ==
[~2025-06-19] MED LIST changes: +'CLONIDINE0.1 MG PO; +ALBUTEROL SULFATE HF; +BUPRENORPHINE-1 EAC1 SL; +DOXYCYCLINE HY100 M3 PO; +ONDANSETRON HYDR4 MG PO
[2025-06-19 16:31] LABS: BILIRUBIN Negative (Negative); BLOOD Negative (Negative); CLARITY Clear (Clear); COLOR Yellow (Yellow); KETONE Negative (Negative); LEUKO ESTERASE Negative (Negative); NITRITE Negative (Negative); PH 7.5 (4.5-8.0); SPECIFIC GRAVITY 1.020 (1.001-1.030); UROBILINOGEN 0.2 E.U./dl (0.0-1.0)
[2025-06-19 16:37] LABS: BASO # 0.1 10*3/uL (0.0-0.1); BASO % 0.5 % (0.0-1.0); EOS # 0.0 10*3/uL (0.0-0.4); EOS % 0.2 % (1.0-4.0); MEAN CELL VOLUME 91.2 fl (80.0-94.0); MEAN CORPUSCULAR HGB 29.4 pg (27.0-31.0); MEAN PLATELET VOLUME 9.8 fl (9.6-12.3); MONO # 0.4 10*3/uL (0.1-1.0); MONO % 3.3 % (3.0-9.0); NEUT # 9.9 10*3/uL (2.3-7.9); NEUT % 81.0 % (47.0-73.0); NUCLEATED RED BLOOD CELL 0.0 % (0.0-0.0); NUCLEATED RED BLOOD CELL 0.0 10*3/uL (0.0-0.0); PLATELET COUNT AUTOMATED 249 10*3/uL (130-400); RED CELL DISTRI WIDTH 14.2 % (0-14.5)
[2025-06-19 16:41] LABS: EPITHELIAL CELLS 0-2; WBC 0-2 wbc/hpf (0-5)
[2025-06-19 16:44] LABS: URINE AMPHETAMINES Negative (1000ng/ml); URINE BARBITURATES Negative (200ng/ml); URINE BENZODIAZEPINES Negative (200ng/ml); URINE CANNABINOIDS (THC) Negative (50ng/ml); URINE COCAINE Negative (300ng/ml); URINE METHADONE Negative (300ng/ml); URINE OPIATES Negative (300ng/ml); URINE PHENCYCLIDINE Negative (25ng/ml)
[2025-06-19 16:58] LABS: BUN 23 mg/dl (9-23)
== END | disposition home or self-care (01) ==
LOC: RESCLI 01:55
PROVIDERS: Student in an Organized Health Care Education/Training Program; ATTEND Internal Medicine
DX: J45.909 Unspecified asthma, uncomplicated (principal); F41.9 Anxiety disorder, unspecified; R53.83 Other fatigue; Z79.899 Other long term (current) drug therapy

== ENCOUNTER → 2025-07-04 | Outpatient (CLI) | payer OTHER | END | disposition home or self-care (01) | LOC: RESCLI 01:54 | PROVIDERS: ATTEND Internal Medicine | DX: J45.909 Unspecified asthma, uncomplicated (principal); R30.0 Dysuria; F41.9 Anxiety disorder, unspecified; L21.9 Seborrheic dermatitis, unspecified; R10.11 Right upper quadrant pain; Z79.899 Other long term (current) drug therapy ==

== ENCOUNTER → 2025-07-21 | Outpatient (CLI) | payer OTHER | LOC: US 08:30 | PROVIDERS: ATTEND Family Medicine | DX: K82.4 Cholesterolosis of gallbladder (principal); R10.11 Right upper quadrant pain ==

== ENCOUNTER → 2025-07-25 | Outpatient (CLI) | payer OTHER | LOC: RESCLI 03:24 → LAB 03:50 → RESCLI 03:50 | PROVIDERS: ATTEND Internal Medicine | DX: R07.9 Chest pain, unspecified (principal) ==

== ENCOUNTER 2025-09-11 02:12 | Emergency (ER) | payer OTHER ==
[~2025-09-11] VITALS: Wt 111.1 kg
[2025-09-11] MEDS ORDERED: SODIUM CHLORIDE 0.9% 1,000 ML IV ONE (02:55)
[2025-09-11] MEDS ORDERED: IOHEXOL 300 MG/ML 100 ML VIAL IV ONE (03:00)
[2025-09-11 03:05] LABS: BASO # 0.1 10*3/uL (0.0-0.1); BASO % 0.6 % (0.0-1.0); EOS # 0.6 10*3/uL (0.0-0.4); EOS % 5.7 % (1.0-4.0); MEAN CELL VOLUME 90.8 fl (80.0-94.0); MEAN CORPUSCULAR HGB 29.6 pg (27.0-31.0); MEAN PLATELET VOLUME 10.1 fl (9.6-12.3); MONO # 0.9 10*3/uL (0.1-1.0); MONO % 9.7 % (3.0-9.0); NEUT # 6.0 10*3/uL (2.3-7.9); NEUT % 62.7 % (47.0-73.0); NUCLEATED RED BLOOD CELL 0.0 % (0.0-0.0); NUCLEATED RED BLOOD CELL 0.0 10*3/uL (0.0-0.0); PLATELET COUNT AUTOMATED 210 10*3/uL (130-400); RED CELL DISTRI WIDTH 13.5 % (0-14.5)
[2025-09-11 03:24] LABS: BUN 17 mg/dl (9-23)
== END 2025-09-11 05:08 | disposition home or self-care (01) ==
LOC: ED 02:12
PROVIDERS: Internal Medicine
DX: K40.90 Unilateral inguinal hernia, without obstruction or gangrene, not specified as recurrent (principal); R10.31 Right lower quadrant pain; J45.909 Unspecified asthma, uncomplicated; Z90.89 Acquired absence of other organs

== ENCOUNTER 2025-09-15 11:54 | Emergency (ER) | payer OTHER ==
[~2025-09-15] VITALS: Ht 182.8 cm; Wt 111.1 kg
[2025-09-15] MEDS ORDERED: AMITRIPTYLINE10 MG PO (12:09)
[2025-09-15 12:49] LABS: BASO # 0.1 10*3/uL (0.0-0.1); BASO % 0.6 % (0.0-1.0); EOS # 0.5 10*3/uL (0.0-0.4); EOS % 5.1 % (1.0-4.0); MEAN CELL VOLUME 90.9 fl (80.0-94.0); MEAN CORPUSCULAR HGB 29.6 pg (27.0-31.0); MEAN PLATELET VOLUME 10.2 fl (9.6-12.3); MONO # 1.0 10*3/uL (0.1-1.0); MONO % 9.6 % (3.0-9.0); NEUT # 6.8 10*3/uL (2.3-7.9); NEUT % 66.2 % (47.0-73.0); NUCLEATED RED BLOOD CELL 0.0 % (0.0-0.0); NUCLEATED RED BLOOD CELL 0.0 10*3/uL (0.0-0.0); PLATELET COUNT AUTOMATED 246 10*3/uL (130-400); RED CELL DISTRI WIDTH 13.5 % (0-14.5)
[2025-09-15 13:19] LABS: BUN 15 mg/dl (9-23); SGPT/ALT 15 U/L (5-49)
[2025-09-15 15:46] LABS: BILIRUBIN Negative (Negative); BLOOD Negative (Negative); CLARITY Clear (Clear); COLOR Yellow (Yellow); KETONE Negative (Negative); LEUKO ESTERASE Negative (Negative); NITRITE Negative (Negative); PH 5.5 (4.5-8.0); SPECIFIC GRAVITY 1.025 (1.001-1.030); UROBILINOGEN 0.2 E.U./dl (0.0-1.0)
[2025-09-15 15:52] LABS: URINE AMPHETAMINES Positive (1000ng/ml); URINE BARBITURATES Negative (200ng/ml); URINE BENZODIAZEPINES Negative (200ng/ml); URINE CANNABINOIDS (THC) Negative (50ng/ml); URINE COCAINE Negative (300ng/ml); URINE METHADONE Negative (300ng/ml); URINE OPIATES Negative (300ng/ml); URINE PHENCYCLIDINE Negative (25ng/ml)
[2025-09-15 15:56] LABS: MUCOUS 1+
[2025-09-15] MEDS ORDERED: SEPTDS PO (17:00)
[2025-09-15] MEDS ORDERED: CEPHALEXIN500 M1 PO (17:00)
== END 2025-09-15 17:07 | disposition home or self-care (01) ==
LOC: ED 11:54
PROVIDERS: Nurse Practitioner Family
DX: N50.89 Other specified disorders of the male genital organs (principal); R60.0 Localized edema; F15.10 Other stimulant abuse, uncomplicated; R10.30 Lower abdominal pain, unspecified; Z79.899 Other long term (current) drug therapy; Z90.89 Acquired absence of other organs; Z87.891 Personal history of nicotine dependence